=== PATIENT | female | born 1955 | race Caucasian/White ===

== ENCOUNTER 2017-09-17 11:12 | Emergency (ER) | payer OTHER ==
[2017-09-17] MEDS ORDERED: LIDOCAINE PATCH 5% TOP STA (12:35)
[2017-09-17] MEDS ORDERED: KETOROLAC 60 MG/2 ML VIAL IM STA (12:36)
--- NOTE | 2017-09-17 12:38 | ED Physician Documentation ---
History of Present Illness - Stated complaint Stated Complaint: LEFT SIDE PX - Chief complaint Chief Complaint: General - History obtained from History obtained from: Patient, Family - History of Present Illness Timing: How many weeks ago (1) Pain level max: 6 Pain level now: 4 Improved by: rest Worsened by: movement - Additonal information Additional information: Patient is a 62-year-old female with complaints of left anterior low rib pain after bending over to retrieve clothes out of a washing machine a week ago. States felt a pop. Has had pain since that time. Has not taken anything at home for the pain. No cough. No fevers. No vomiting. No abdominal pain. Review of Systems Constitutional: denies: Fever, Chills Cardiac: denies: Chest pain / pressure, Palpitations GI: denies: Vomiting, Diarrhea Skin: denies: Rash Musculoskeletal: denies: Neck pain, Back pain Neurologic: denies: Headache PD PAST MEDICAL HISTORY - Past Medical History Past Medical History: Yes Musculoskeletal: Osteoporosis - Past Surgical History Past Surgical History: Yes /[employer]EL[employer]INE[employer]: section - Present Medications Home Medications: Ambulatory Orders Medication Instructions Recorded Confirmed Fluticasone [Flonase] 09/17/17 Lidocaine Patch 5% [Lidoderm Patch] 1 patch TOP DAILY PRN #10 patch 09/17/17 Meloxicam [Mobic] 7.5 mg PO BID PRN #20 tablet 09/17/17 - Allergies Allergies/Adverse Reactions: Allergies Allergy/AdvReac Type Severity Reaction Status Date / Time No Known Drug Allergies Allergy Verified 09/17/17 11:15 - Living Situation Living Situation: reports: With family Living Arrangement: reports: At home - Social History Does the pt smoke?: No Smoking Status: Never smoker Does the pt drink ETOH?: No Does the pt have substance abuse?: No - Family History Family history: reports: Non contributory - Immunizations Immunizations are current?: No - POLST Patient has POLST: No PD ED PE NORMAL - Vitals Vital signs reviewed: Yes - General General: Alert and oriented X 3, No acute distress, Well developed/nourished - Neck Neck: Supple, no meningeal sign - Cardiac Cardiac: RRR, Strong equal pulses - Respiratory Respiratory: No respiratory distress, Clear bilaterally, Other (TTP Low anterior ribs, approx 10-12. no crepitus. no ecchymosis.) - Abdomen Abdomen: Soft, Non tender, Non distended - Derm Derm: Warm and dry - Neuro Neuro: Alert and oriented X 3 - Psych Psych: Normal mood, Normal affect Results - Vitals Vitals: Vital Signs - 24 hr 09/17/17 09/17/17 11:16 12:50 Temperature 36.8 C Heart Rate 64 Respiratory 18 Rate Blood Pressure 236/69 H 141/71 H O2 Saturation 96 Oxygen O2 Source Room air - Rads (name of study) cxr Radiology: Prelim report reviewed, EMP read contemporaneously, See rad report ( no acute disease) PD MEDICAL DECISION MAKING - ED course Complexity details: reviewed results, re-evaluated patient, considered differential, d/w patient, d/w family ED course: Patient is a 62-year-old female who presents to the emergency department with a rib contusion versus minor fracture. No acute findings on x-ray. She is well- appearing, nontoxic. No hypoxia. No respiratory distress. Will continue supportive care and follow-up with her doctor. Patient counseled regarding signs and symptoms for which I believe and urgent re-evaluation would be necessary. Patient with good understanding of and agreement to plan and is comfortable going home at this time This document was made in part using voice recognition software. While efforts are made to proofread this document, sound alike and grammatical errors may occur. Departure - Departure Disposition: 01 Home, Self Care Clinical Impression: Contusion of rib on left side Qualifiers: Encounter type: initial encounter Qualified Code(s): S20.212A - Contusion of left front wall of thorax, initial encounter Condition: Good Instructions: ED Contusion Vs Minor Fx Rib Follow-Up: your,doctor in 1 week [Other] Prescriptions: Lidocaine Patch 5% [Lidoderm Patch] 1 patch TOP DAILY PRN #10 patch PRN Reason: pain Meloxicam [Mobic] 7.5 mg PO BID PRN #20 tablet PRN Reason: Pain Comments: Return if you worsen. This may take several weeks to heal. Your blood pressure was elevated today on check in to the emergency department. This does not mean that you have hypertension, it is a common phenomenon to check into the emergency department and have elevated blood pressure. I recommend that you see your primary care physician within the week to have it rechecked when you're feeling better. Discharge Date/Time: 09/17/17 13:11
[2017-09-17] MEDS ORDERED: KETOROLAC 30 MG/ML VIAL ONE (12:49)
[2017-09-17 12:50] VITALS: BP 141/71
[2017-09-17] MEDS ORDERED: LIDOCAINE PATCH 5% TOP ONE (12:50)
--- NOTE | 2017-09-17 12:51 | XRAY Preliminary Report ---
Exam: XR CHEST 2 VIEW PA/LAT IMPRESSION: No radiographically apparent acute abnormality in the chest. [facility] SITE ID: [id number]
--- NOTE | 2017-09-17 12:54 | XRAY Report ---
EXAM: CHEST RADIOGRAPHY EXAM DATE: 09/17/2017 12:19 PM. CLINICAL HISTORY: Pain left rib. COMPARISON: None. TECHNIQUE: 2 views. FINDINGS: Lungs/Pleura: No focal opacities evident. No pleural effusion. No pneumothorax. Normal volumes. Mediastinum: Heart and mediastinal contours are unremarkable. Other: None. IMPRESSION: No radiographically apparent acute abnormality in the chest. [facility] Referring Provider Line: [phone] SITE ID: [id number]
== END 2017-09-17 13:11 | disposition home or self-care (01) ==
LOC: ED 11:12
DX: S20.212A Contusion of left front wall of thorax, initial encounter (principal); X58.XXXA Exposure to other specified factors, initial encounter; R03.0 Elevated blood-pressure reading, without diagnosis of hypertension; M81.0 Age-related osteoporosis without current pathological fracture
CPT/HCPCS: 71020; 96372; 99283; A9270